=== PATIENT | male | born 1995 | race Hispanic/Latino ===

== ENCOUNTER 2017-12-13 13:07 | Emergency (ER) | payer SELFPAY ==
[~2017-12-13] VITALS: Ht 167.6 cm; Wt 64.9 kg
[2017-12-13] MEDS ORDERED: NAPROXEN500 MG PO (13:55)
[2017-12-13] MEDS ORDERED: LIDODERM 5% P1 PATCH TD (13:55)
[2017-12-13] MEDS ORDERED: FLEXERIL10 MG PO (13:55)
[2017-12-13 14:00] VITALS: BP 122/78
== END 2017-12-13 14:28 | disposition home or self-care (01) ==
LOC: EME 13:07
DX: M54.5 Low back pain (principal); X50.0XXA Overexertion from strenuous movement or load, initial encounter; Y99.0 Civilian activity done for income or pay
CPT/HCPCS: 99281; 99283

== ENCOUNTER 2017-12-31 12:39 | Emergency (ER) | payer SELFPAY ==
[~2017-12-31] VITALS: Ht 167.6 cm; Wt 63.4 kg
[~2017-12-31 12:39] MED LIST: FLEXERIL10 MG PO; LIDODERM 5% P1 PATCH TD; NAPROXEN500 MG PO
[2017-12-31 14:19] LABS: BASOPHIL (%) 0.1 % (0-1); EOSINOPHIL (%) 0.6 % (0-5); HEMATOCRIT 45.3 % (38.0-50.0); HEMOGLOBIN 16.1 G/DL (12.5-16.6); IMMATURE GRANULOCYTE (%) 0.3 % (0.0-0.7); LYMPHOCYTE (%) 26.2 % (15-42); LYMPHOCYTE COUNT 1.8 K/uL (1.0-2.8); MCH 31.8 PG (29.0-34.0); MCHC 35.5 G/DL (30.0-36.0); MCV 89.3 FL (86-99); MONOCYTE (%) 7.7 % (3-12); MONOCYTE COUNT 0.5 K/uL (0-0.8); NEUTROPHIL (%) 65.1 % (45-76); NEUTROPHIL COUNT 4.6 K/uL (1.8-6.4); PLATELET COUNT 292 K/uL (156-360); RBC DIS.WIDTH-SD 39.4 % (39-53); RED BLOOD COUNT 5.07 M/uL (4.00-5.50)
[2017-12-31 14:30] LABS: ALBUMIN 4.6 g/dL (3.2-4.8); CHLORIDE 104 mEq/L (99-109); POTASSIUM 4.2 mEq/L (3.7-5.4); SODIUM 139 mEq/L (136-147)
[2017-12-31 14:32] LABS: GLUCOSE 95 mg/dL (70-99)
[2017-12-31 14:34] LABS: TOTAL BILIRUBIN 0.7 mg/dL (0.0-1.0)
[2017-12-31 14:36] LABS: ALKALINE PHOSPHATASE 83 IU/L (3-129); CREATININE 0.9 mg/dL (0.6-1.3); GFR ESTIMATE (CALCULATED) > 59 mL/min/ (58.99-99999)
[2017-12-31 14:37] LABS: UREA NITROGEN (BUN) 14 mg/dL (9-23)
[2017-12-31 14:38] LABS: AST (GOT) 23 IU/L (2-34)
[2017-12-31 14:39] LABS: ALT (GPT) 18 IU/L (3-49); LIPASE 20 U/L (1.0-51.0)
[2017-12-31 15:50] LABS: APPEARANCE TURBID ((CLEAR)); BILIRUBIN NEGATIVE; BLOOD NEGATIVE; COLOR AMBER ((YELLOW)); GLUCOSE (STRIP) NEGATIVE; KETONES NEGATIVE; LEUKOCYTES NEGATIVE; NITRITE NEGATIVE; PROTEIN (STRIP) 30; SPECIFIC GRAVITY 1.025 (1.000-1.030); UROBILINOGEN 0.2 MG/DL (0.2-1.0)
[2017-12-31 16:27] LABS: RED BLOOD CELLS NONE SEEN /HPF (0-5); WHITE BLOOD CELLS NONE SEEN /HPF (0-5)
[2017-12-31 16:28] LABS: BACTERIA NONE SEEN /HPF; EPITHELIAL CELLS NONE SEEN /HPF; MUCUS NONE SEEN /LPF
[2017-12-31 16:29] LABS: AMORPHOUS PHOSPHATE CRYSTALS 3+
[2017-12-31] MEDS ORDERED: PREDNISONE10 MG PO (16:37)
[2017-12-31] MEDS ORDERED: VALIUM5 MG PO (16:37)
[2017-12-31 16:52] VITALS: BP 119/76
== END 2017-12-31 16:54 | disposition home or self-care (01) ==
LOC: EME 12:39
PROVIDERS: Physician Assistant
DX: M54.5 Low back pain (principal); R91.8 Other nonspecific abnormal finding of lung field
CPT/HCPCS: 74176; 80053; 81003; 83690; 85025; 99281; 99284; J1885